=== PATIENT | female | born 1980 | race American Indian/Alaskan Native ===

== ENCOUNTER 2018-03-03 09:04 | Day surgery (SDC) | payer MEDICAID ==
[~2018-03-03 09:04] MED LIST: LACTATED RINGERS 1,000 ML IV SCH; MARCAINE 0.5% 0 ML INFILTRATI ONE; NACL ONE; NEOSPORIN GU IR ONE
[2018-03-03] MEDS ORDERED: PEPCID IV SCH (10:38)
[2018-03-03] MEDS ORDERED: TRANSDERM-SCOP TD NR (10:40)
[2018-03-03] MEDS ORDERED: VERSED IV NR (11:00)
[2018-03-03 11:13] LABS: Hematocrit 31.9 % (30.3-42.9); Hemoglobin 10.4 gm/dl (10.1-14.3)
[2018-03-03] MEDS ORDERED: SILVER NITRATE TP ONE (11:41)
[2018-03-03] MEDS ORDERED: XYLOCAINE MPF 2% ONE (11:49)
[2018-03-03] MEDS ORDERED: DIPRIVAN 10 MG/ML IV ONE (11:49)
[2018-03-03] MEDS ORDERED: DILAUDID ONE (11:50)
--- NOTE | 2018-03-03 12:11 | Anesthesia Day of Surgery ---
Anesthesia Day of Surgery - Day of Surgery Patient Examined: Yes Patient H&P Reviewed: Yes Patient is NPO: Yes
--- NOTE | 2018-03-03 12:12 | Anesthesia Consultation ---
Anesthesia Consult and Med Hx Date of service: 03/03/18 - Airway Anesthetic Teeth Evaluation: Good ROM Head & Neck: Adequate Mental/Hyoid Distance: Adequate Mallampati Class: Class I Intubation Access Assessment: Good - Pulmonary Exam CTA: Yes - Cardiac Exam Cardiac Exam: RRR - Pre-Operative Health Status Proposed Anesthetic Plan: General (hx of PONV with Hydromorphone. Will place scop patch, give toradol for pain in OR) - Pulmonary Hx Asthma: Yes (not treated since 2012) COPD: No Hx Pneumonia: No - Central Nervous System Hx Psychiatric Problems: No - Endocrine Hx End Stage Renal Disease: No - Hematic Hx Anemia: Yes - Other Systems Hx Cancer: No
[2018-03-03] MEDS ORDERED: DEMEROL IV PRN (12:13)
[2018-03-03] MEDS ORDERED: PHENERGAN PO PRN (12:13)
[2018-03-03] MEDS ORDERED: ZOFRAN ONE (12:15)
[2018-03-03] MEDS ORDERED: DECADRON ONE (12:29)
[2018-03-03] MEDS ORDERED: NACL 0.9% IR ONE (12:30)
--- NOTE | 2018-03-03 12:45 | Discharge Summary ---
Providers - Providers Date of discharge: 03/03/18 Attending physician: LIN PERAZA MD Primary care physician: JENNIFER FINE Hospitalization Reason for admission: other (S/P D&C, hysterescopy) Procedure: other (D&C, hysterescopy) Condition at discharge: Stable Disposition: - TO HOME OR SELFCARE Plan - Provider Discharge Summary Activity: routine Diet: routine Instructions: routine Additional instructions: [] Smoking cessation referral if applicable(refer to patient education folder for contact #) [] Refer to [facility] Booklet Call your doctor immediately for: * Fever > 100.5 * Heavy vaginal bleeding ( >1 pad per hour) * Severe persistent headache * Shortness of breath * Reddened, hot, painful area to leg or breast * Drainage or odor from incision. * Keep incision clean and dry at all times and follow doctor's instructions regarding bathing/showering - Follow up plan Follow up: JENNIFER FINE MD [Primary Care Provider] - 7 Days LIN PERAZA MD [Staff Physician] - 7 Days
--- NOTE | 2018-03-03 12:49 | Operative Report ---
Operative Report Operative Report: Preoperative diagnosis: 1. Abnormal uterine bleeding. 2. Uterine leiomyoma. 3. Anemia. Postoperative diagnosis: same as preop diagnosis. Procedure: 1. Hysterescopy 2. D&C 3. Endometrial polypectomy Surgeon: Dr. Corea Instructor Physical: none IVF: RL 1 liter EBL: minimal Anesthesia: general Complications: none Procedure details: Risks, benefits, and alternatives of the procedure were discussed in detail with the patient which included but not limited to the risks of infection, hemorrhage requiring blood transfusion, uterine perforation. The patient expressed understanding, her questions were answered, and she gave informed consent. The patient was taken to the operating room with an IV fluid infusing ringers lactate. In the operating room, she was placed in the dorsal supine position and given general anesthesia. Then, she was placed on the stirups in the dorsolithotomy position. The perineum, vagina and cervix were washed and she was prepared and draped in usual sterile fashion. Examination under anesthesia revealed a normal external genitalia and vagina, the cervix was closed, long, and posterior, no gross lesions with moderate bleeding. The uterus was enlarged to 14 weeks' size with irregular contour. A weighted speculum was placed on the posterior vaginal wall, the anterior lip of the cervix was grasped a single-tooth tenaculum. Endocervical curettage was done. The cervical os was dilated and a hysteroscope was introduced into the uterine cavity. Hysteroscopy revealed a thickened endometrial lining, the ostia were not visualized. The hysteroscope was then removed from the uterine cavity and a gentle curettage was performed until a gritty texture was noticed. The specimen which consisted of ECC and EMC was sent to pathology. The instruments were removed from the uterus, cervix and vagina. The count of laps, needles, sponges, and instruments were correct 2. The patient tolerated the procedure well. She was awakened from the anesthesia and taken to the recovery room in a stable condition.
--- NOTE | 2018-03-03 13:10 | Post Anesthesia Evaluation ---
- Post Anesthesia Evaluation Patient Participated: Yes Airway Patent: Yes Stable Respiratory Function: Yes Nausea/Vomiting: No Temp > 96.8F: Yes Pain Manageable: Yes Adequeate Hydration: Yes Anesthesia Complications: No
[2018-03-03 14:05] VITALS: BP 126/73
[2018-03-03] MEDS ORDERED: BENADRYL IV NR (14:30)
== END 2018-03-03 15:30 | disposition home or self-care (01) ==
LOC: OR 09:04
PROVIDERS: ATTEND Obstetrics & Gynecology
DX: D25.9 Leiomyoma of uterus, unspecified (principal); J45.909 Unspecified asthma, uncomplicated; D64.9 Anemia, unspecified
CPT/HCPCS: 36415; 58558; 81025; 85014; 85018; 88305; A4217; J1100; J1170; J1200; J2175; J2250; J2405; J2704; J7120